=== PATIENT | male | born 1980 | race Caucasian/White ===

== ENCOUNTER 2016-12-17 17:44 | Emergency (ER) | payer OTHER ==
[2016-12-17] MEDS ORDERED: Morphine INJ* 2 MG/ML 1 ML CARPUJECT IV ONE (18:05)
--- NOTE | 2016-12-17 18:13 | UC ---
Rectal Pain HPI - HPI Summary HPI Summary: 35 yo male with severe rectal pain 01/02 onset this of rectal prolapse (which has happened before) which he reduced easily later he had a BM and it prolapsed He struggled to reduce it and now is complaining severe rectal pain has had a 40 lb wt loss - History Of Current Complaint Chief Complaint: UCGI Stated Complaint: PERSONAL Time Seen by Provider: 12/17/16 17:51 Hx Obtained From: Patient Onset/Duration: Sudden Onset, Lasting Hours Timing: Constant Severity Initially: Severe Severity Currently: Severe Pain Intensity: 10 Pain Scale Used: 0-10 Numeric Location Of Pain: Rectal Character: Pressure Aggravating Factor(s): Nothing Alleviating Factor(s): Nothing Associated Signs And Symptoms: Positive: Rectal Bleeding - Allergies/Home Medications Allergies/Adverse Reactions: Allergies Allergy/AdvReac Type Severity Reaction Status Date / Time No Known Allergies Allergy Verified 12/17/16 17:54 Home Medications: Home Medications Acetaminophen TAB* [Tylenol TAB*] 975 mg PO Q6H PRN 12/17/16 [History Confirmed 12/17/16] PMH/Surg Hx/FS Hx/Imm Hx Previously Healthy: Yes - Surgical History Surgical History: Yes Surgery Procedure, Year, and Place: facial reconstruction. hand surgery - Family History Known Family History: Positive: Hypertension - Social History Alcohol Use: Occasionally Substance Use Type: None Smoking Status (MU): Never Smoked Tobacco When Did the Patient Quit Smoking/Using Tobacco: 3 months ago - Immunization History Most Recent Influenza Vaccination: not this season Most Recent Tetanus Shot: 2010 Review of Systems Constitutional: Negative Skin: Negative Eyes: Negative ENT: Negative Respiratory: Negative Cardiovascular: Negative Gastrointestinal: Other - rectal pain Genitourinary: Negative Motor: Negative Neurovascular: Negative Musculoskeletal: Negative Neurological: Negative Psychological: Negative Is Patient Immunocompromised?: No All Other Systems Reviewed And Are Negative: Yes Physical Exam Triage Information Reviewed: Yes Appearance: Pain Distress - writhing in pain, Thin Vital Signs: Initial Vital Signs Temp 97.9 F 12/17/16 17:55 Pulse 84 12/17/16 17:55 Resp 20 12/17/16 17:55 BP 151/91 12/17/16 17:55 Pulse Ox 100 12/17/16 17:55 Vital Signs Reviewed: Yes Eyes: Positive: Conjunctiva Clear ENT: Positive: Hearing grossly normal. Negative: Nasal congestion, Nasal drainage, Trismus, Muffled/hoarse voice Neck: Positive: Supple, Nontender Respiratory: Positive: Lungs clear, Normal breath sounds, No respiratory distress Cardiovascular: Positive: RRR, No Murmur Abdomen Description: Positive: Nontender, Soft, Other: - unable to do an exam to to patients discomfrt. Negative: CVA Tenderness (R), CVA Tenderness (L), Distended, Guarding Musculoskeletal: Positive: ROM Intact, No Edema Neurological: Positive: Alert Psychological Exam: Normal Skin Exam: Normal Rectal Pain Course/Dx - Course Course Of Treatment: D/W Jorge at [facility]. She accepts pt. Given 4 mg of MSO4 prior to transport - Differential Dx/Diagnosis Provider Diagnoses: severe rectal pain. rectal prolapse by history. 40 pound wt loss Discharge - Discharge Plan Condition: Stable Disposition: TRANS HIGHER LVL OF CARE FAC
[2016-12-17 18:25] VITALS: BP 130/69
== END 2016-12-17 18:31 | disposition short-term general hospital (02) ==
LOC: UCCORT 17:44
DX: K62.89 Other specified diseases of anus and rectum (principal); R63.4 Abnormal weight loss; K62.3 Rectal prolapse
CPT/HCPCS: 96374; 99213; G0463; J2270

== ENCOUNTER → 2018-12-06 | Day surgery (SDC) | payer BC ==
[~2018-12-06] MED LIST: Buffered Lidocaine 1% SYRIN* 1 ML/SYRINGE INTRADERM ONE; Bupivacaine 0.25% EPI 200,000* 30 ML SDV ONE; Dexamethasone IV* 4 MG/ML 1 ML (4 MG) IV SLOW PU ONE; Dexamethasone IV* 4 MG/ML 1 ML (4 MG) ONE; DiMENhydriNATE IV* 50 MG/ML VIAL IV PUSH PRN; Famotidine IV* 10 MG/ML 2 ML (20 mg) IV SLOW PU ONE; Famotidine IV* 10 MG/ML 2 ML (20 mg) ONE; HYDROmorphone INJ1* 1 MG/ML SYRINGE IV PRN; Ketorolac INJ* 30 MG/ML 1 ML VIAL ONE; Lactated Ringers 1000 ML Bag* 1,000 ML IV SCH; Midazolam* 1 MG/ML 5 ML VIAL (5 MG) ONE; Naloxone* 0.4 MG/ML 1 ML VIAL IV PRN; Ondansetron INJ* 2 MG/ML VIAL IV PRN; Ondansetron INJ* 2 MG/ML VIAL ONE; Propofol* 10 MG/ML 20 ML BTL ONE; Rocuronium* 10 MG/ML VIAL ONE; Scopolamine 1.5 mg* PATCH TRANSDERM PRN; Sugammadex * 200 MG/2 ML VIAL IV PUSH ONE; ceFAZolin 2 GM in NS PREMIX(*) 2 GM/100 ML BAG IVPB ONE; fentaNYL* 50 MCG/ML 2 ML VIAL (100 MCG VIAL) IV PRN; fentaNYL* 50 MCG/ML 5 ML VIAL (250 MCG VIAL) ONE; oxyCODONE/Acetamin 5/325 MG* TAB PO PRN
[2018-12-06 16:55] VITALS: BP 131/68
--- NOTE | 2018-12-06 22:20 | OP ---
DATE OF OPERATION: 12/06/18 [facility] DATE OF : 82 SURGEON: Niko Hubbard MD. AREA FORESTER: Vivi Guerrero NP. ANESTHESIOLOGIST: Dr. Lantigua. ANESTHESIA: General with local. PRE-OP DIAGNOSIS: Right inguinal hernia. POST-OP DIAGNOSIS: Right indirect inguinal hernia. OPERATIVE PROCEDURE: Totally extraperitoneal repair of a right indirect inguinal hernia. WOUND CLASSIFICATION: 1. COMPLICATIONS: None. DRAINS: None. SPECIMENS: None. DESCRIPTION OF PROCEDURE: Written informed consent was obtained, the right groin was marked with indelible ink, and preoperative antibiotics were administered. The patient was taken to the operating room and placed in the supine position. Sequential compression devices and a warming blanket were applied. General anesthesia was administered and a Escalona catheter was inserted. The abdomen and both groins were prepped and draped in the usual sterile fashion. Time-out verification was completed. Initially, a small transverse incision was made just below the umbilicus, at the midline, slightly to the right of midline, and the anterior rectus sheath was divided and right rectus muscle was retracted laterally to expose the posterior rectus sheath. The space anterior to the sheath was then developed with a Tricia clamp and the Spacemaker balloon was then passed down to the pubic tubercle under direct vision. Using the 10-mm camera inserted into the balloon port, the balloon was insufflated with about 8 or 9 puffs of the pump under direct vision. It was apparent that the epigastric vessels on the right had been dissected off the anterior abdominal wall and I, at this point, did not pursue further insufflation of the balloon and this was removed. A 12-mm blunt port was inserted into this space and the extraperitoneum was insufflated to 12 mmHg, and the patient was placed into Trendelenburg position. Under direct vision, two 5 mm ports were placed in the midline beneath the initial 12 mm blunt port. Pubic tubercle was then identified after sweeping aside some adventitial tissue and we were able to identify the right Bert's ligament. The epigastric vessels were identified. As mentioned, they had been dissected somewhat off of the anterior abdominal wall and these were identified and retracted superiorly, and protected from injury throughout the remainder of the case. Laterally, the anterior abdominal wall and the iliopubic tract was identified and I was able to identify the peritoneal reflection laterally, moving medially. We were able to identify the peritoneal sac that had entered the internal ring, with a consistent finding of an indirect inguinal hernia. We were able to reduce the hernia sac from the internal ring. We were able to identify and protect from the injury the vas deferens as well as the spermatic cord and its contents. The peritoneal reflection was then reflected back more medially, sitting down on the pelvis, in anticipation of mesh placement. There did not appear to be a direct hernia space. Next, a 10 cm x 15 cm self-gripping extraperitoneal mesh was folded and then placed into the extraperitoneal space. The direct and indirect spaces were covered equally with a mesh and it was unfolded anteriorly and posteriorly along the retroperitoneum from just to the left of the midline out to the pubic tubercle on the right. Mesh covered nicely without folding or wrinkling and hemostasis was assured. The extraperitoneal space was then desufflated under direct vision, holding the mesh with two retractors anterior and posteriorly. All ports were removed. The anterior rectus sheath was closed with interrupted 0 Vicryl suture. The skin at all three incisions were approximated with subcuticular 4-0 Vicryl suture. Steri-Strips were applied. The patient tolerated the procedure well and was taken to the recovery room in stable condition. [id number]/[facility] #: [id number] RAOUL
== END | disposition home or self-care (01) ==
LOC: OR 11:10
PROVIDERS: ATTEND Surgery
DX: K40.90 Unilateral inguinal hernia, without obstruction or gangrene, not specified as recurrent (principal); Z87.891 Personal history of nicotine dependence; D38.3 Neoplasm of uncertain behavior of mediastinum
CPT/HCPCS: C1781; J0690; J1100; J1885; J2250; J2405; J2704; J3010